=== PATIENT | female | born 1985 | race Caucasian/White ===

== ENCOUNTER 2016-06-13 12:23 | Emergency (ER) | payer MEDICAID ==
[~2016-06-13] VITALS: Ht 172.7 cm; Wt 117.9 kg
[~2016-06-13 12:23] MED LIST: NORCO1 TA2 PO
[2016-06-13 14:15] VITALS: BP 125/72
== END 2016-06-13 14:52 | disposition home or self-care (01) ==
LOC: ED 12:23
DX: S93.692A Other sprain of left foot, initial encounter (principal); E66.01 Morbid (severe) obesity due to excess calories; Z72.0 Tobacco use; W20.8XXA Other cause of strike by thrown, projected or falling object, initial encounter; Y93.89 Activity, other specified; Y92.89 Other specified places as the place of occurrence of the external cause; Y99.8 Other external cause status
CPT/HCPCS: J1885

== ENCOUNTER 2016-08-01 09:40 | Emergency (ER) | payer MEDICAID ==
[~2016-08-01] VITALS: Ht 167.6 cm; Wt 121.1 kg
[2016-08-01 10:31] LABS: BASOPHIL % 0.7 % (0-2); PLATELET COUNT 387 x10^3mcL (130-400); RED CELL DISTRIBUTION WIDTH 13.5 % (11.5-14.5)
[2016-08-01 10:35] LABS: CALCIUM 8.7 mg/dL (8.5-10.1); CARBON DIOXIDE 27.9 mmol/L (21-32); CHLORIDE SERUM 107 mmol/L (98-107); CREATININE SERUM 0.7 mg/dL (0.6-1.0); GFR1 > 60 mL/min; GLUCOSE SERUM 117 mg/dL (74-106); POTASSIUM SERUM 3.8 mmol/L (3.5-5.1); SODIUM SERUM 142 mmol/L (136-145)
[2016-08-01 10:42] LABS: ALBUMIN 3.9 g/dL (3.4-5.0); ALKALINE PHOSPHATASE 93 U/L (46-116); ALT/SGPT 47 U/L (14-59); AST/SGOT 32 U/L (15-37); BILIRUBIN TOTAL 0.35 mg/dL (0.20-1.00); LIPASE 129 IU/L (73-393)
[2016-08-01 11:56] VITALS: BP 119/79
== END 2016-08-01 11:56 | disposition home or self-care (01) ==
LOC: ED 09:40
PROVIDERS: Emergency Medicine
DX: K29.20 Alcoholic gastritis without bleeding (principal); Z90.49 Acquired absence of other specified parts of digestive tract
CPT/HCPCS: Q0162

== ENCOUNTER 2016-10-19 12:22 | Emergency (ER) | payer MEDICAID ==
[2016-10-19 15:54] LABS: CALCIUM 8.1 mg/dL (8.5-10.1); CARBON DIOXIDE 27.5 mmol/L (21-32); CHLORIDE SERUM 107 mmol/L (98-107); CREATININE SERUM 0.7 mg/dL (0.6-1.0); GFR1 > 60 mL/min; GLUCOSE SERUM 109 mg/dL (74-106); POTASSIUM SERUM 4.1 mmol/L (3.5-5.1); SODIUM SERUM 140 mmol/L (136-145)
[2016-10-19 16:00] LABS: BASOPHIL % 0.8 % (0-2); PLATELET COUNT 345 x10^3mcL (130-400); RED CELL DISTRIBUTION WIDTH 12.6 % (11.5-14.5)
[2016-10-19 17:16] VITALS: BP 103/74
== END 2016-10-19 17:16 | disposition home or self-care (01) ==
LOC: ED 12:22
PROVIDERS: Emergency Medicine
DX: N93.8 Other specified abnormal uterine and vaginal bleeding (principal); N39.0 Urinary tract infection, site not specified; D64.9 Anemia, unspecified
CPT/HCPCS: 36415; J1885

== ENCOUNTER 2016-11-08 10:47 | Inpatient (IN) | payer MEDICAID ==
[~2016-11-08] VITALS: Ht 167.6 cm; Wt 126.2 kg
--- NOTE | 2016-11-08 10:52 | NUR ---
PT SENT TO LOBBY TO WAIT FOR AVAILABLE BED AT THIS TIME. ALERT AND ORIENTED WITHOUT S/S DISTRESS NOTED
--- NOTE | 2016-11-08 12:10 | NUR ---
PT IS A 31 YEAR OLD FEMALE, PRESENTS TO ED WITH C/O HEAVY BLEEDING FROM VAGINA APRROX 10 PADS A DAY WITH BLOOD CLOTS FOR THE PAST MONTH, WITH DIZZINESS, AND GENERALIZED HEADACHE. PT ALSO REPORTS GENERALIZED WEAKNESS UPON EXERTION.PT REPORTS NAUSEA WITHOUT VOMITING. PT DENIES DIARRHEA OR CONSTIPATION. PT DENIES ANY URINARY COMPLICATIONS. PT REPORTS INTERMITTENT CRAMPING IN SUPRAPUBIC AREA FOR THE PAST MONTH. PT REPORTS TODAY HAS BEEN CONSTANT. PT BREATHING IS EVEN AND UNLABORED, NO S/S OF RESRPATIORY DISTRESS. SPEECH IS CLEAR AND APPROPRIATE. PT A/O X4. PT AWIAITING MSE.
[2016-11-08 13:24] LABS: BASOPHIL % 0.7 % (0-2); PLATELET COUNT 337 x10^3mcL (130-400); RED CELL DISTRIBUTION WIDTH 14.4 % (11.5-14.5)
--- NOTE | 2016-11-08 14:36 | NUR ---
[facility] SWAB COLLECTED AND SENT TO LAB
--- NOTE | 2016-11-08 14:37 | NUR ---
PT STATES NO HOME MEDICATIONS.
--- NOTE | 2016-11-08 14:50 | NUR ---
REPORT CALLED TO ALMA RN, HE WILL ASSUME CARE PRIMARY RN POST TRASNFER.
--- NOTE | 2016-11-08 14:50 | NUR ---
INFORMED ULTRASOUND, PER DR. STONE, WE DO NOT NEED ULTRASOUND DONE BEFORE TRANSFERING PT UPSTAIRTS.
[2016-11-08 14:53] LABS: CALCIUM 7.5 mg/dL (8.5-10.1); CARBON DIOXIDE 26.8 mmol/L (21-32); CHLORIDE SERUM 108 mmol/L (98-107); CREATININE SERUM 0.7 mg/dL (0.6-1.0); GFR1 > 60 mL/min; GLUCOSE SERUM 112 mg/dL (74-106); POTASSIUM SERUM 3.6 mmol/L (3.5-5.1); SODIUM SERUM 138 mmol/L (136-145)
--- NOTE | 2016-11-08 14:54 | NUR ---
PT TAKEIN TO U/S
[2016-11-08 14:58] LABS: ALKALINE PHOSPHATASE 75 U/L (46-116); ALT/SGPT 47 U/L (14-59); AST/SGOT 34 U/L (15-37); BILIRUBIN TOTAL 0.2 mg/dL (0.20-1.00); TOTAL PROTEIN, SERUM 6.2 g/dL (6.4-8.2)
[2016-11-08 14:59] LABS: ALBUMIN 2.9 g/dL (3.4-5.0)
[2016-11-08 15:33] VITALS: BP 93/42
--- NOTE | 2016-11-08 15:40 | NUR ---
RECEIVED PT FROM ED VIA [facility]. ORIENTED PT TO ROOM AND SURROUDNINGS. IV NOTED TO LAC PATENT AND INTACT. TELE 5 PLACED ON PT READING NSR. INSTRUCTED PT ON THE USE OF CALL LIGHT FOR ASSISTANCE. ENDORSED PT TO PRIMARY NURSE ALMA
--- NOTE | 2016-11-08 15:41 | NUR ---
RECEIVED PATIENT FROM [facility], PATIENT IN STABLE CONDITION, WILL CONTINUE TO MONITOR
[2016-11-08 16:02] LABS: T3 TOTAL 1.11 ng/mL
[2016-11-08 16:06] LABS: MAGNESIUM 2.2 mg/dL (1.8-2.4); PHOSPHOROUS 2.4 mg/dL (2.5-4.9)
[2016-11-08 16:12] LABS: FREE T4 1.03 ng/dL (0.76-1.46); FREE THYROXINE INDEX 2.1 ug/dL (1.4-4.5); T4(THYROXINE) 5.9 ug/dL (4.7-13.3)
[2016-11-08 16:16] LABS: CHOLESTEROL/HDL RATIO 3.1
--- NOTE | 2016-11-08 18:31 | NUR ---
PATIENT C/O HEADACHE, MEDICATED ORDERED, WILL CONTINUE TO MONITOR
--- NOTE | 2016-11-08 18:48 | NUR ---
PATIENT RESTING IN BED, IN NO ACUTE DISTRESS, NO C/O PAIN AT THIS TIME, NO SOB NOTED AT THIS TIME, BED IN LOW POSITION, BED RAILS UP X 2, CALL LIGHT WITHIN REACH, WILL ENDORSE CARE TO ONCOMING NURSE
--- NOTE | 2016-11-08 19:30 | NUR ---
PT IS ALERT AND ORIENTED X 4. PLEASANT AND COOPERATIVE. LUNGS DIMINISHED CLEAR ON AUSCULTATIONS BILATERALLY. ROOM AIR. 02SAT 96%. STILL HAS IV NS AT 100 IN THE LEFT AC. PATENT AND INTACT. BUT PT WAS UNCOMFORTABLE WITH THE IV SITE REQUESTED TO CHANGE THE IV SITE TO THE RIGHT ARM INSTEAD. OBESE. ABLE TO AMBULATE TO THE BATHROOM. STILL HAS SOME VAGINAL SPOTTING. MADE COMFORTABLE IN BED, CALL LIGHT WITHIN EASY REACH.
[2016-11-08 21:39] VITALS: BP 102/58
--- NOTE | 2016-11-08 22:17 | NUR ---
PT C/O 5/10 HEADACHE. MEDICATED WITH NORCO 1 TAB PO. PT ALSO C/O MILD SOB ON EXERTION. MEDICATED WITH NORCO 1 TAB PO. WILL MONITOR.
--- NOTE | 2016-11-08 23:12 | NUR ---
HAD SHOWER WITH ORDER AND TOLERATED WELL.
[2016-11-09] VITALS (7 sets, daily range): BP systolic 91–120; BP diastolic 48–64
--- NOTE | 2016-11-09 05:26 | NUR ---
PT IS RESTING WELL. HEPLOCK. STILL HAS SOME MILD VAGINAL BLEEDING BUT NOT CLOTS. DENIES ANY PAIN OR DISCOMFORT. WILL CONTINUE TO MONITOR.
--- NOTE | 2016-11-09 05:44 | NUR ---
PT C/ HEADACHE 07/28. MEDICATED WITH NORCO 1 TAB PO. WILL MONITOR. FOR EFFECTIVENESS.
[2016-11-09 06:17] LABS: CALCIUM 7.5 mg/dL (8.5-10.1); CARBON DIOXIDE 26.8 mmol/L (21-32); CHLORIDE SERUM 110 mmol/L (98-107); CREATININE SERUM 0.7 mg/dL (0.6-1.0); GFR1 > 60 mL/min; GLUCOSE SERUM 104 mg/dL (74-106); PHOSPHOROUS 3.5 mg/dL (2.5-4.9); SODIUM SERUM 139 mmol/L (136-145)
[2016-11-09 06:54] LABS: BASOPHIL % 1.6 % (0-2); PLATELET COUNT 331 x10^3mcL (130-400); RED CELL DISTRIBUTION WIDTH 14.1 % (11.5-14.5)
--- NOTE | 2016-11-09 07:54 | NUR ---
PT SEEN, ASLEEP BUT EASILY AROUSABLE, ALERT AND ORIENTED, DENIES HEADACHE OR DIZZZINESS, BREATHING EVEN AND UNLABORED, NO SOB, LUNG SOUNDS CLEAR, ON ROOM AIR WITH NO RESP DISTRESS NOTED, ON TELE#5 NSR, SL TO LAC, PULSES PALPABLE, NO EDEMA NOTED, AMBULATORY WITH STEADY GAIT, ABD SOFT AND ROUND WITH ACTIVE BS, NO BM AT THIS TIME, PT STILL ON PERIOD, MINIMAL VAGINAL BLEED, NO DISTRESS NOTED, WILL KEEP TO MONITOR.
[2016-11-09 08:40] LABS: rbc morphology (normal/abnorm) ABNORMAL (NORMAL); tear drop cell (dacryocyte) 1+
--- NOTE | 2016-11-09 09:17 | NUR ---
PT WAS AT RESTROOM AND SUDDENLY FELT LIGHT HEADED, PT DENIES ANY FALL OR LOC, ASSISTED PT BACK TO CHAIR AND WHEEL PT BACK PT BED WITHOUT INCIDENT, DR GHOSH AND DR CUMMINS AT BEDSIDE, PT'S BP-91/48, HR-67, SPO2-99% WITH NC 2L, NO NEW ORDER RECEIVED AT THIS TIME, EDUCATED PT PLEASE USE CALL LIGHTS WHEN SHE NEEDS HELP, PT VERBALIZED UNDERSTANDING.
--- NOTE | 2016-11-09 11:00 | NUR ---
PT ASLEEP BUT EASILY AROUSABLE, BREATHING EVEN AND UNLABORED, ON O2 2L VIA NC WITH NO RESP DISTRESS NOTED, SIDE RAILS UP, WILL KEEP TO MONITOR.
--- NOTE | 2016-11-09 13:10 | NUR ---
RECEIVED PT FROM [facility]. PT SEEN LYING IN BED, C/O HEADACHE AND DIZZINESS. PALE. NO SOB/PAIN NOTED. SIDE RAILS UPX2. CALL LIGHT ON REACH. WILL CONT TO MONITOR
--- NOTE | 2016-11-09 13:33 | NUR ---
MEDICATED W/ TYLENOL 650 MG PO FOR C/O 11/28 HEADACHE.
--- NOTE | 2016-11-09 14:50 | NUR ---
HEPLOCK ON THE RFA REMOVED, CATHETER INTACT. IV SITE WAS INFILTRATED. DR. HATFIELD MADE AWARE THAT TYLENOL AND NORCO DO NOT WORK FOR HER HEADACHE. STATED THAT SHE IS STILL FEELING DIZZY AT THIS TIME. RECEIVED NEW ORDERS FROM DR. HATFIELD, WILL CARRY OUT ORDERS.
--- NOTE | 2016-11-09 15:17 | NUR ---
DR. HATFIELD MADE AWARE THAT THE PT WANTS TO TALK TO HIM.
--- NOTE | 2016-11-09 15:37 | NUR ---
PT HAS HER EYES CLOSED, AROUSABLE TO VERBAL STIMULI.
--- NOTE | 2016-11-09 16:45 | NUR ---
DR. HATFIELD MADE AWARE THAT REPEAT H/H IS 6.9/.
--- NOTE | 2016-11-09 16:59 | NUR ---
PT HAS HER EYES CLOSED, NO S/S OF PAIN AND SOB NOTED. SIDE RAILS UP2X. CALL LIGHT ON REACH. WILL CONT TO MONITOR
[2016-11-09 17:03] LABS: rbc morphology (normal/abnorm) ABNORMAL (NORMAL)
[2016-11-09 17:04] LABS: tear drop cell (dacryocyte) 1+
--- NOTE | 2016-11-09 17:39 | NUR ---
DR. HATFIELD IS PAGED TO MADE AWARE THAT PT'S WANTS TO TALK TO HIM, WAITING FOR CALLBACK.
--- NOTE | 2016-11-09 18:05 | NUR ---
PER PT'S , DR. HATFIELD CAME AND DISCUSSED PLAN OF CARE. ALL QUESTIONS OF WERE ANSWERED PER PT'S . CALL LIGHT ON REACH. WILL CONT TO MONITOR
--- NOTE | 2016-11-09 18:11 | NUR ---
PT STATED THAT SHE DOES NOT HAVE HEADACHE AT THIS TIME AND HER DIZZINESS IS GETTING BETTER. STATED THAT SHE CHANGED HER PADS X2 TODAY W/ SCANT CLOTS AND MILD VAGINAL BLEED. AT BEDSIDE. NEEDS ARE ATTENDED. CALL LIGHT ON REACH. WILL CONT TO MONITOR
--- NOTE | 2016-11-09 20:35 | NUR ---
PT CURRENTLY RESTING IN BED, NO ACUTE DISTRESS. A/O X4. TELE #5 SHOWING SINUS RHYTHM. DENIES CHEST PAIN. PULSES PALPABLE IN ALL EXTREMITIES, NO EDEMA NOTED. LUNG SOUNDS CTA BILATERALLY. BOWEL SOUNDS ACTIVE, LAST BM 11/08/16. VOIDING WELL. AMBULATORY. SKIN INTACT. DENIES PAIN AT THIS TIME. IV PATENT AND INTACT. PT DOES NOT REPORT BLEEDING AT THIS TIME. BED IN LOWEST POSITION, SIDE RAILS UP X2, SCDS IN PLACE, CALL LIGHT WITHIN REACH. WILL CONTINUE TO MONITOR.
--- NOTE | 2016-11-09 21:30 | NUR ---
BLOOD PRESSURE 95/48, MAP 57, DR BROOKS AWARE. WILL CONTINUE TO MONITOR.
--- NOTE | 2016-11-10 01:24 | NUR ---
PT CURRENTLY RESTING IN BED, NO ACUTE DISTRESS. WILL CONTINUE TO MONITOR.
[2016-11-10 05:18] VITALS: BP 100/50
--- NOTE | 2016-11-10 05:51 | NUR ---
PT SLEPT PERIODICALLY THROUGHOUT NIGHT, NO ACUTE DISTRESS. ALL NEEDS MET AND ATTENDED TO. NO SIGNIFICANT CHANGES. IV PATENT AND INTACT. BED IN LOWEST POSITION, SIDE RAILS UP X2, SCDS IN PLACE, CALL LIGHT WITHIN REACH. WILL ENDORSE CARE TO ONCOMING NURSE.
[2016-11-10 07:10] LABS: BASOPHIL % 0.6 % (0-2); PLATELET COUNT 330 x10^3mcL (130-400); RED CELL DISTRIBUTION WIDTH 14.7 % (11.5-14.5)
[2016-11-10 07:19] LABS: CALCIUM 7.8 mg/dL (8.5-10.1); CARBON DIOXIDE 27.8 mmol/L (21-32); CHLORIDE SERUM 109 mmol/L (98-107); CREATININE SERUM 0.6 mg/dL (0.6-1.0); GFR1 > 60 mL/min; GLUCOSE SERUM 109 mg/dL (74-106); MAGNESIUM 1.9 mg/dL (1.8-2.4); POTASSIUM SERUM 3.9 mmol/L (3.5-5.1); SODIUM SERUM 140 mmol/L (136-145)
--- NOTE | 2016-11-10 07:53 | NUR ---
AT 0710 - RECEIVED PATIENT FROM NIGHT NURSE. PATIENT SLEEPING, RESPIRATIONS REGULAR. MONITOR SHOWING SINUS RHYTHM; RATE 78. IV SALINE LOCKED.
[2016-11-10 09:33] VITALS: BP 125/67
--- NOTE | 2016-11-10 12:50 | NUR ---
AT 0845 - SEEN BY DR GHOSH DURING MORNING ROUNDS. MEDICAL TEAM DOCTORS, THEE WALTER AND MYSELF PRIMARY NURSE ALSO PRESENT. DR GHOSH SPOKE WITH PATIENT ABOUT PLAN OF TREATMENT AND ANSWERED PATIENT'S QUESTIONS. AT 0930 - PATIENT HAS HAD SHOWERE. AT 1020 - COMMENCED FERRLICET IV. TO INFUSE OVER 1 HOUR. AT 1145 - IV SALINE LOCKED. PATIENT MEDICATED WITH TORADOL FOR HEADACHE.
[2016-11-10 13:30] VITALS: BP 108/62
--- NOTE | 2016-11-10 13:45 | NUR ---
PATIENT REPORTS THAT HEADACHE IS RESOLVING. ENCOURAGED TO TAKE PO LIQUIDS.
[2016-11-10 16:07] VITALS: BP 103/51
--- NOTE | 2016-11-10 16:46 | NUR ---
VSS. NO HEADACHE AT THIS TIME BUT PATIENT ANDREA REPORTS SOME DIZZINESS. EDUCATED IN PRECAUTION TO TAKE WHEN GETTING UP FROM SUPINE TO SITTING TO STANDING POSITIONS. HAS BEEN AMBULATING. TOLERATING DIET. IV REMIANS SALINE LOCKED.
--- NOTE | 2016-11-10 19:01 | NUR ---
VSS. AFEBRILE. NO C/O HEADACEH THIS PM. AMBULATING IN ROOM. WILL ENDORSE CARE TO NIGHT NURSE.
--- NOTE | 2016-11-10 20:00 | NUR ---
RECEIVED PT IN BED, A/OX4. RESP. EVEN AND UNLABORED. ON ROOM AIR, LUNGS SOUNDS CLEAR BILAT. NO DISTRESS NOTED. AFEBRILE AND VITAL SIGNS STABLE. HL TO LAC, INTACT AND PATENT. SR ON THE MONITOR.DENIES CP OR ANY DISCOMFORT AT THIS TIME. AMBULATORY. VOIDING FREELY. NO VAG , BLEEDING REPORTED AT THIS TIME. CALL LIGHT WITHIN REACH. WILL CONTINUE TO MONITOR.
[2016-11-10 22:00] VITALS: BP 113/64
--- NOTE | 2016-11-10 22:00 | NUR ---
COMPLAINED OF HEADACHE 08/28, REQUESTING TORADOL, MEDICATED ORDERED. WILL CONTINUE TO MONITOR.
--- NOTE | 2016-11-10 23:02 | NUR ---
PT RESTING QUIETLY IN BED, STATES PAIN RELIEF. WILL CONTINUE TO MONITOR.
--- NOTE | 2016-11-11 02:22 | NUR ---
NO COMPLAINTS NOTED AT THIS TIME. ASLEEP, EASILY AROUSABLE. NO DISTRESS NOTED. WILL CONTINUE TO MONITOR.
[2016-11-11 05:24] VITALS: BP 102/48
--- NOTE | 2016-11-11 06:31 | NUR ---
SLEPT WELL . NO COMPLAINTS NOTED AT THIS TIME. AFEBRILE AND VITAL SIGNS STABLE. DENIES PAIN OR ANY DISCOMFORT. NO VAG. BLEEDING NOTED. VOIDING FREELY. WILL ENDORSE TO INCOMING NURSE.
--- NOTE | 2016-11-11 07:42 | NUR ---
RECEIVED PATIENT FROM NIGHT NURSE. AWAKE, ALERT AND ORIENTED. REPORTS THAT HEADACHE AND DIZZINESS HAVE MOSTLY RESOLVED. ALSO VAGINAL BLEEDING HAS STOPPED. PATIENT AMBULATING IN ROOM. NOW EATING BREAKFAST.
[2016-11-11 08:07] VITALS: BP 124/60
--- NOTE | 2016-11-11 09:45 | NUR ---
AT 0825 - SEEN BY DR LOPES DURING MORNING ROUNDS. MEDICAL TEAM DOCTORS, THEE WALTER AND MYSELF PRIMARY NURSE ALSO PRESENT. DR CASTILLO TRANSLATED IN [place]. DR LOPES SPOKE WITH PATIENT ABOUT PLAN OF CARE UPON DISCHARGE - APPROPRIATE FOLLOW-UP WITH OBGYN, MEDS AND POSSIBLE NEED FOR D&C ON OUTPATIENT BASIS. PLAN TO DC HOME TODAY.
[2016-11-11] MEDS ORDERED: PROV5 PO (11:31)
[2016-11-11] MEDS ORDERED: FERRALET 901 TAB PO (11:32)
[2016-11-11] MEDS ORDERED: MULTI-VITAMIN1 EACH PO (11:34)
[2016-11-11 12:41] VITALS: BP 124/60
--- NOTE | 2016-11-11 14:59 | NUR ---
AT 1400 - PRINTED DISCHARGE INSTRUCTIONS GIVEN AND EXPLAINED TO PATIENT. ELECTRONIC PRESCRIPTION HAS BEEN RECEIVED BY PATIENT'S PREFERRED PHARMACY. IV CATHETER WAS REMOVED EARLIER AND PATIENT TAKEN OFF CARDIAC MONTIORING. AT 1420 - DISCHARGED HOME WITH FAMILY. ESCORTED AMBULATORY TO DISCHARGE OFFICE BY [facility].
== END 2016-11-11 14:08 | disposition home or self-care (01) | DRG 532 ==
LOC: ED 10:47 → DU 14:08
PROVIDERS: Emergency Medicine; Family Medicine; ADMIT Family Medicine
DX: N93.8 Other specified abnormal uterine and vaginal bleeding (principal); E43 Unspecified severe protein-calorie malnutrition; Z68.42 Body mass index [BMI] 45.0-49.9, adult; E83.51 Hypocalcemia; E83.39 Other disorders of phosphorus metabolism; K21.9 Gastro-esophageal reflux disease without esophagitis; D64.9 Anemia, unspecified; F17.210 Nicotine dependence, cigarettes, uncomplicated; Z98.1 Arthrodesis status
CPT/HCPCS: 84439; J1642; J1885; J2550; J2916; J7030; J7050

== ENCOUNTER 2016-11-13 23:54 | Emergency (ER) | payer MEDICAID ==
[~2016-11-13 23:54] MED LIST changes: +FERRALET 901 TAB PO; +MULTI-VITAMIN1 EACH PO; +PROV5 PO
[2016-11-14 00:48] VITALS: BP 132/86
== END 2016-11-14 00:49 | disposition home or self-care (01) ==
LOC: ED 23:54
DX: L03.114 Cellulitis of left upper limb (principal); Z98.890 Other specified postprocedural states; Z79.899 Other long term (current) drug therapy
CPT/HCPCS: J1885